=== PATIENT | female | born 1980 | race Hispanic/Latino ===

== ENCOUNTER → 2025-01-24 | Outpatient (CLI) | payer MEDICARE ==
--- NOTE | 2025-01-24 15:11 | HMCIMG ---
CT CHEST WITHOUT CONTRAST INDICATION: Unspecified asthma, uncomplicated TECHNIQUE: Routine axial images using 5 mm slice thickness were acquired from the lung apices to the bases without the administration of IV contrast.Coronal and sagittal reformatted images acquired for interpretation. CT was performed with one or more of the following dose reduction techniques: Automated exposure control, adjustment of the mA and/or kV according to patient size, or use of iterative reconstruction technique. COMPARISON: None FINDINGS: Median sternotomy wires are in appropriate alignment. The heart size is normal. No pericardial effusion noted. The visualized great vessels and thoracic aorta are within normal limits. The trachea and airways are patent. No evidence for pulmonary nodule, consolidation, cavitary lesion, or other abnormal pulmonary parenchymal opacity. Linear scarring within the lingula. No axillary, hilar, or mediastinal lymphadenopathy. No pleural effusion or pneumothorax identified. Limited views of the upper abdomen appear normal. Visible osseous structures are intact. IMPRESSION: No evidence for any acute cardiopulmonary process.
== END | disposition home or self-care (01) ==
LOC: RAH 13:58
PROVIDERS: ATTEND Internal Medicine
DX: J84.10 Pulmonary fibrosis, unspecified (principal); J45.909 Unspecified asthma, uncomplicated
CPT/HCPCS: 71250